=== PATIENT | male | born 1945 | race Caucasian/White ===

== ENCOUNTER 2023-05-28 18:37 | Emergency (ER) | payer MEDICARE, OTHER, SELFPAY ==
[2023-05-28 18:41] VITALS: BP 204/94
[2023-05-28 19:23] VITALS: BP 185/84
--- NOTE | 2023-05-28 23:21 | ED.SKININJ ---
HPI-Injury
General
Chief Complaint: Skin Surface Trauma
Source: patient
Exam Limitations: none
Time Seen by Provider: 05/28/23 18:53
Nursing documentation reviewed up to this point in time: agreed with
Travel History
Have you had any contact with someone who has COVID-19?: No
Do you have any symptoms of coronavirus? Fever > 100 degrees, chills, cough, shortness of breath, sore throat, loss of taste or smell, muscle aches, or headache?: No
History of Present Illness-Injury
Is this injury a work related problem?: No
Is pt an associate of [facility]?: No
Initial Injury comments:
Hit arm on wall and sustained a skin tear to his left forearm. Site continues to bleed. His is taking eliquis. Injury occured this AM
Past History
Past History
ED Past Medical History: HTN, Hypercholesterolemia and NIDDM
ED Past Surgical History: None
Social History
Tobacco: Non-smoker
Alcohol: None
Personal:
Living: with family
Employment: Retired
Review of Systems
Review of Systems
Allergies reviewed?: Yes
All Other Systems: ROS reviewed and negative except as documented in HPI and ROS
Constitutional: Reports no symptoms
Musculoskeletal: Reports no symptoms
Skin: Reports other (Skin tear to left forearm)
Neurological: Reports no symptoms
Psychiatric: Reports no symptoms
Skin Exam
Laceration
Skin tear left forearm:
Orientation: C shaped
Type of Laceration: simple
Any active bleeding?: low grade venous oozing
Distal skin color and temperature: normal-warm & good color
Normal distal neurovascular exam: Yes
Range of motion: full
Phy Exam
General Physical Exam
General Presentation: well appearing and no apparent distress
General age: appears stated age
General Skin: warm
Musculoskeletal Exam
Musculoskeletal Exam: full ROM and neuro vasc intact
Skin Exam
Skin Exam: normal color, warm/dry and no rash
Psychiatric Exam
Psychiatric Exam: normal mood/affect
Course
Vital Signs
Initial and Last Documented VS:
Initial Vital Signs
Temp Pulse Resp BP Pulse Ox
97.7 F 66 20 204/94 99
05/28/23 18:41 05/28/23 18:41 05/28/23 18:41 05/28/23 18:41 05/28/23 18:41
Last Documented Vital Signs
Temp Pulse Resp BP Pulse Ox
97.7 F 65 20 185/84 99
05/28/23 18:41 05/28/23 19:23 05/28/23 18:41 05/28/23 19:23 05/28/23 18:41
Procedures
Laceration Closure
Skin tear left forearm:
Status of Wound: clean
Size of Wound in cm: 4
Description of Wound Edges: sharp
Preparation: cleaned with saline
Revision/Debridement: routine- no revision
Wound exploration: explored to base- no FB
Type of Closure: Dermabond-skin glue
*Critical Care Note
Total Time (30-74mins, 75-104mins- exclusive of procedures): Not Applicable
ED Attending Note
-
Portions of this chart may have been created with voice recognition software.� Occasional wrong word or��sound alike� substitutions may have occurred due to the inherent limitations of voice recognition software.
Discharge Plan
Departure
Patient Disposition: Home (Routine Discharge)
Date of Disposition: 05/28/23
Time of Disposition: 19:19
Patient with high blood pressure during this ER visit?: No
Condition: Good
Covid-19: Not Applicable
Discharge Problem:
Skin tear of forearm without complication
Instructions: Laceration Repair With Glue (DC)
Prescriptions:
No Action
niacin 500 MG tablet extended release 24 hr
1,000 mg PO HS
glipizide 5 MG tablet extended release 24hr
10 mg PO DAILY@0800,1700
naproxen 250 MG tablet
250 mg PO BID@0800,1700
nifedipine 30 MG tablet extended release
30 mg PO QPM
aspirin 81 MG tablet,delayed release (DR/EC)
81 mg PO HS
garlic 1,000 MG capsule
1,000 mg PO HS
ascorbic acid (vitamin C) 250 MG tablet
250 mg PO BID
pantoprazole 40 MG tablet,delayed release (DR/EC)
40 mg PO DAILY
simvastatin 20 MG tablet
80 mg PO HS
ferrous sulfate [FeroSul] 325 MG tablet
325 mg PO BID
metformin 1,000 MG tablet
1,000 mg PO BID@0800,1700
gabapentin 300 MG capsule
600 mg PO HS
lisinopril 2.5 MG tablet
2.5 mg PO DAILY
potassium chloride 10 MEQ tablet,ER particles/crystals
10 meq PO DAILY
omega-3 acid ethyl esters [Lovaza] 1 GM capsule
2 gm PO BID
cholecalciferol (vitamin D3) 1,000 UNITS tablet
1,000 units PO DAILY
sitagliptin phosphate [Januvia] 50 MG tablet
50 mg PO HS
levetiracetam 500 MG tablet extended release 24 hr
1,000 mg PO HS
multivitamin with folic acid [Tab-A-Kumar] 1 TABLET tablet
1 tab PO DAILY
albuterol sulfate 1 PUFF HFA aerosol inhaler
2 puff inhalation R [id number] PRN (Reason: shortness of breath or wheeze) 0RF
guaifenesin [Mucus Relief ER] 600 MG tablet extended release 12hr
600 mg PO Q12 15 Days Qty: 30 0RF
prednisone 10 MG tablet
10 mg PO .TAPER Qty: 18 0RF
Rx Instructions:
30mg daily x3days,
20mg daily x3days, 10mg daily x3days.
apixaban [Eliquis] 5 MG tablet
5 mg PO BID 30 Days Qty: 60 0RF
metoprolol succinate 100 MG tablet extended release 24 hr
75 mg PO DAILY Qty: 30 0RF
Referrals:
Gerard Dangelo Jr., DO [Family Provider] - Follow up in 2-3 days
Interventions
Interventions:
*Risk Screen - Suicide Last Done: 05/28/23 19:00
*General Assessment Last Done: 05/28/23 19:00
*Neglect/Abuse Screening Last Done: 05/28/23 19:00
ED- Fall Risk Assessment Last Done: 05/28/23 19:00
*ED COVID-19 Vaccine History Last Done: 05/28/23 19:00
*Nursing Disposition Last Done: 05/28/23 20:25
ED-Skin Assessment Last Done: 05/28/23 19:00
Discharge Date and Time
Discharge Date/Time: 05/28/23 20:26
Print Language: TURKISH
== END 2023-05-28 20:26 | disposition home or self-care (01) ==
LOC: EMR 18:37
PROVIDERS: EMERGENCY PHYSICIAN Emergency Medicine; FAMILY PHYSICIAN Family Medicine
DX: S51.812A Laceration without foreign body of left forearm, initial encounter (principal); W22.8XXA Striking against or struck by other objects, initial encounter; Z79.01 Long term (current) use of anticoagulants
CPT/HCPCS: 99282; 12002

== ENCOUNTER → 2023-12-21 11:15 | Outpatient (REF) | payer MEDICARE, OTHER, SELFPAY | LOC: HWRCS 11:15 | PROVIDERS: ATTENDING PHYSICIAN Internal Medicine; FAMILY PHYSICIAN Family Medicine | DX: I48.0 Paroxysmal atrial fibrillation (principal); I10 Essential (primary) hypertension; I77.810 Thoracic aortic ectasia; I34.0 Nonrheumatic mitral (valve) insufficiency | CPT/HCPCS: 93306 ==

== ENCOUNTER → 2024-05-02 10:48 | Outpatient (REF) | payer MEDICARE, OTHER, SELFPAY ==
[2024-05-02 13:37] LABS: Blood Urea Nitrogen 19 mg/dl (9-20); Calcium 9.8 mg/dl (8.4-10.2); Carbon Dioxide 32 mmol/L (22-30); Chloride 105 mmol/L (98-107); Glucose 136 mg/dl (70-99); Potassium 3.5 mmol/L (3.5-5.1); Sodium 145 mmol/L (135-145); eGFR > 60.00
[2024-05-02 14:10] LABS: PSA, Total - Diagnostic 0.19 ng/ml (0.0-4.0)
== END ==
LOC: HWLAB 10:48
PROVIDERS: ATTENDING PHYSICIAN Urology; FAMILY PHYSICIAN Family Medicine
DX: C61 Malignant neoplasm of prostate (principal); R35.1 Nocturia; N30.41 Irradiation cystitis with hematuria
CPT/HCPCS: 36415; 80048; 84153

== ENCOUNTER → 2024-11-27 09:47 | Outpatient (REF) | payer MEDICARE, OTHER, SELFPAY ==
[2024-11-27 12:18] LABS: Hematocrit 40.5 % (39.0-52.0); Hemoglobin 13.4 g/dL (13.0-18.0)
[2024-11-27 12:31] LABS: Albumin 4.3 g/dl (3.5-5.0); Blood Urea Nitrogen 18 mg/dl (9-20); Calcium 9.6 mg/dl (8.4-10.2); Carbon Dioxide 31 mmol/L (22-30); Chloride 106 mmol/L (98-107); Glucose 109 mg/dl (70-99); Potassium 3.3 mmol/L (3.5-5.1); Sodium 139 mmol/L (135-145); Uric Acid 6.2 mg/dl (3.5-8.5); eGFR > 60.00
[2024-11-27 16:38] LABS: Microalb - Urine Creatinine 93.400 mg/dl
[2024-11-27 16:55] LABS: Microalbumin, Random Urine 31.9 mg/dl (0.6-1.7)
== END ==
LOC: HWLAB 09:47
PROVIDERS: ATTENDING PHYSICIAN Specialist; FAMILY PHYSICIAN Family Medicine
DX: N18.31 Chronic kidney disease, stage 3a (principal); R60.0 Localized edema
CPT/HCPCS: 36415; 80069; 82043; 82570; 83520; 83880; 83970; 84155; 84156; 84165; 84550; 85014; 85018; 86335

== ENCOUNTER → 2025-01-08 11:19 | Outpatient (REF) | payer MEDICARE, OTHER, SELFPAY ==
[2025-01-08 13:08] LABS: Blood Urea Nitrogen 18 mg/dl (9-20); Calcium 9.7 mg/dl (8.4-10.2); Carbon Dioxide 34 mmol/L (22-30); Chloride 102 mmol/L (98-107); Glucose 81 mg/dl (70-99); Potassium 3.7 mmol/L (3.5-5.1); Sodium 140 mmol/L (135-145); eGFR > 60.00
[2025-01-08 13:38] LABS: Cortisol, Random 7.0 ug/dl
[2025-01-10 13:59] LABS: Renin Activity Results <0.1 ng/mL/hr
== END ==
LOC: REG 11:19
PROVIDERS: ATTENDING PHYSICIAN Specialist; FAMILY PHYSICIAN Family Medicine
DX: I1A.0 Resistant hypertension (principal)
CPT/HCPCS: 36415; 80048; 82088; 82533; 84244

== ENCOUNTER → 2025-01-27 10:42 | Outpatient (REF) | payer MEDICARE, OTHER, SELFPAY ==
[2025-01-27 13:17] LABS: Blood Urea Nitrogen 14 mg/dl (9-20); Calcium 9.4 mg/dl (8.4-10.2); Carbon Dioxide 32 mmol/L (22-30); Chloride 102 mmol/L (98-107); Glucose 101 mg/dl (70-99); Potassium 4.0 mmol/L (3.5-5.1); Sodium 141 mmol/L (135-145); eGFR > 60.00
== END ==
LOC: REG 10:42
PROVIDERS: ATTENDING PHYSICIAN Specialist; FAMILY PHYSICIAN Family Medicine
DX: E26.9 Hyperaldosteronism, unspecified (principal)
CPT/HCPCS: 36415; 80048